=== PATIENT | female | born 1960 | race Caucasian/White ===

== ENCOUNTER 2019-04-17 10:43 | Emergency (ER) | payer MEDICARE, MEDICAID ==
--- NOTE | 2019-04-17 11:22 | UC ---
Ear Complaint HPI - HPI Summary HPI Summary: Per vp strategy: "LEFT EAR PAIN AND FEELS 'FILLED WITH FLUID' X1 WEEK. FELT FEVERISH. TAKING TYLENOL AND IBUPROFEN PRN. " -no fevers, no dc. + severe left ear pain last night -gets yeast infection from PCN based abx, but no allergy - History of Current Complaint Chief Complaint: UCEar Stated Complaint: LEFT EAR CONCERN Time Seen by Provider: 04/17/19 11:16 Pain Intensity: 0 - Allergies/Home Medications Allergies/Adverse Reactions: Allergies Allergy/AdvReac Type Severity Reaction Status Date / Time No Known Allergies Allergy Verified 04/17/19 11:05 Home Medications: Home Medications Albuterol HFA INHALER* [Ventolin HFA Inhaler*] 1 puff Q4HR PRN 04/17/19 [ History Confirmed 04/17/19] Esomeprazole Magnesium [Nexium 24Hr] 1 tab PO DAILY 04/17/19 [History Confirmed 04/17/19] Loratadine [Claritin 10 MG CAP] 10 mg PO DAILY 04/17/19 [History Confirmed 04/17] Nicotrol Inhaler 1 inh DAILY 04/17/19 [History Confirmed 04/17/19] PMH/Surg Hx/FS Hx/Imm Hx Previously Healthy: Yes - Surgical History Surgical History: None - Family History Known Family History: Positive: Hypertension, Diabetes - Social History Alcohol Use: Rare Substance Use Type: None Smoking Status (MU): Current Every Day Smoker Type: Cigarettes Amount Used/How Often: 1/4 PPD Length of Time of Smoking/Using Tobacco: SINCE 13 Y/O Review of Systems All Other Systems Reviewed And Are Negative: Yes Constitutional: Positive: Negative Skin: Positive: Negative. Negative: Rash Eyes: Positive: Negative ENT: Positive: Ear Ache. Negative: Sore Throat Respiratory: Positive: Negative. Negative: Shortness Of Breath, Cough Cardiovascular: Positive: Negative Gastrointestinal: Positive: Negative Genitourinary: Positive: Negative Motor: Positive: Negative Neurovascular: Positive: Negative Musculoskeletal: Positive: Negative Neurological: Positive: Negative Psychological: Positive: Negative Is Patient Immunocompromised?: No Physical Exam Triage Information Reviewed: Yes Appearance: Well-Appearing, No Pain Distress, Well-Nourished Vital Signs: Initial Vital Signs Temp 97.7 F 04/17/19 11:07 Pulse 84 06/01/19 11:07 Resp 18 04/17/19 11:07 BP 154/108 04/17/19 11:07 Pulse Ox 99 04/17/19 11:07 Eye Exam: Normal ENT: Positive: Pharynx normal, TM bulging, TM dull, TM red - left, right is nml , Uvula midline. Negative: Sinus tenderness Neck exam: Normal Neck: Positive: Supple, Nontender, No Lymphadenopathy Respiratory Exam: Normal Respiratory: Positive: Lungs clear, Normal breath sounds, No respiratory distress, No accessory muscle use. Negative: Crackles, Rhonchi, Stridor, Wheezing Cardiovascular Exam: Normal Cardiovascular: Positive: RRR Abdominal Exam: Normal Abdomen Description: Positive: Nontender, Soft Musculoskeletal Exam: Normal Neurological Exam: Normal Psychological Exam: Normal Skin Exam: Normal Ear Complaint Course/Dx - Course Course Of Treatment: Left OM - treat w/ amox -probuotic -dilfucan given to use if she gets sx, which she has w/ amox in past -BP elevated w/ pain, it has improved on recheck. avoid decongestants and nsaids and f/u with pcp - Differential Dx/Diagnosis Differential Diagnosis/HQI/PQRI: Cerumen Impaction, Otitis Media, Perforated TM Provider Diagnosis: Otitis media Discharge - Sign-Out/Discharge Documenting (check all that apply): Patient Departure All imaging exams completed and their final reports reviewed: No Studies - Discharge Plan Condition: Stable Disposition: HOME Prescriptions: Amoxicillin PO (*) [Amoxicillin 875 MG (*)] 875 mg PO BID #20 tab Fluconazole [Diflucan] 150 mg PO ONCE #1 tab Patient Education Materials: Ear Infection (ED) Referrals: Sally Dexter MD [Primary Care Provider] - Additional Instructions: -Make sure to take a probiotic daily while on antibiotics to help prevent a potential complication of antibiotic use called c diff. Some well known brands that can be found OTC are florastor, [employer] and [employer]. Make sure to complete the entire prescription unless advised otherwise by your health care provider. -Do not take decongestants/ibuprofen/advil/aleve as they can raise your blood pressure. Please follow up with your PCP regarding the high blood pressure today. - Billing Disposition and Condition Condition: STABLE Disposition: Home
[2019-04-17 11:30] VITALS: BP 164/96
== END 2019-04-17 11:37 | disposition home or self-care (01) ==
LOC: UCCORT 10:43
DX: H66.92 Otitis media, unspecified, left ear (principal); R03.0 Elevated blood-pressure reading, without diagnosis of hypertension; F17.210 Nicotine dependence, cigarettes, uncomplicated
CPT/HCPCS: 99202; G0463

== ENCOUNTER 2019-07-27 07:04 | Emergency (ER) | payer MEDICARE, OTHER ==
--- OUTSIDE RECORDS SUMMARY | 2019-07-27 07:17 | XMS REPORT | Continuity of Care Document ---
:1960 External Reference #:[id number] Author Name Sally Dexter M.D. (transmitted by agent of provider Shannon Vallejo) Address [address] [place] [address] Care Team Providers Name Role Phone Sally Dexter MD - Internal Medicine Care Team Information Stem Sizer Problems Active Problems Provider Date Gastroesophageal reflux disease Sally Dexter M.D. Onset: 03/08/2013 Contact dermatitis Sally Dexter M.D. Onset: 03/08/2013 Rheumatoid Arthritis Sally Dexter M.D. Onset: 06/01/2014 Social History Type Date Description Comments Sex Unknown Tobacco Use Start: Unknown Patient is a current smoker, smokes every day Smoking Status Reviewed: 09/29/17 Patient is a current smoker, smokes every day Allergies, Adverse Reactions, Alerts Active Allergies Reaction Severity Comments Date Omeprazole vomitting 10/13/2013 Nickel 05/10/2015 Medications Active Medications SIG Qnty Indications Ordering Date Provider Amoxicillin 1 by mouth three 30tabs J20.9 Sally Dexter, 07/13/2019 500mg times a day M.D. Tablets Fluconazole 1 by mouth every 3tabs J20.9 Sally Dexter, 07/13/2019 150mg day M.D. Tablets Nicotrol as directed 336units Slaly Dexter, 02/16/2019 10mg Inhaler M.D. José Natural Pain apply to 113.600gm M94.0 Sally Dexter, 12/07/2018 Relieving affected area M.D. 3-3% Gel twice a day Selsun Blue Deep apply to scalp 8floz L40.9 Sally Dexter, 04/14/2018 Cleansing daily M.D. 3% Shampoo Betamethasone apply to 30gm L40.9 Sally Dexter, 03/30/2018 Dipropionate affected areas M.D. 0.05% twice daily Cream Docusate Sodium 1 by mouth twice 120caps K59.00 Sally Dexter, 11/06/2016 100mg a day M.D. Capsules Meloxicam 1 by mouth twice 180tabs M05.60 aSlly Dexter, 11/06/2016 7.5mg Tablets a day with food M.D. Alendronate Sodium 1 PO Weekly 12tabs M81.0 Sally Dexter, 01/10/2014 70mg M.D. Tablets Fish Oil Concentrate 1 by mouth 3 240caps E78.5 Sally Dexter, 01/10/2014 times daily M.D. 1000mg Capsules Afrin Saline Nasal 1 spray each 30ml 381.19 Sally Dexter, 10/26/2013 Mist nostril bid use M.D. 0.65% Solution for 3 days Aerochamber Mini 2units Debi Alcantar MD 10/01/2013 Aerosol Chamber Device Ventolin HFA 2 puff four 1units J44.9 Sally Dexter, 09/29/2013 times a day as M.D. 108(90Base) mcg/Act needed Aerosol Loratadine 1 by mouth every 100tabs L50.1 Sally Dexter, 07/20/2013 10mg Tablets day M.D. Ra Lansoprazole Unknown 15mg Capsules [facility] Immune Unknown Plus/Vitamin D Chewtabs Alive Womens Gummy Unknown Chewtabs Sambucus Elderberry Unknown 50mg/5ML Syrup Immunizations CPT Code Status Date Vaccine Lot # [id number] Given 09/29/2017 Influenza Virus (Afluria) Split Virus 3 Years Of Age And Older [id number] Given 11/06/2016 Pneumococcal Conjugate Vaccine 13 Valent For [id number] Intramuscular Use Q2037 Given 10/22/2016 Influenza Vaccine (Fluvirin) 3 Years Of Age Or [id number] Older Vital Signs Date Vital Result Comment 07/13/2019 2:27pm BP Systolic 144 mmHg BP Diastolic 98 mmHg Heart Rate 88 /min Height 63 inches 5'3" Weight 144.00 lb BMI (Body Mass Index) 25.5 kg/m2 O2 % BldC Oximetry 97 % 12/21/2018 1:38pm BP Systolic 152 mmHg BP Diastolic 100 mmHg Heart Rate 92 /min Height 63 inches 5'3" Weight 144.00 lb BMI (Body Mass Index) 25.5 kg/m2 O2 % BldC Oximetry 96 % Results Description No Information Available Procedures Date Code Description Status 09/18/2017 646432259 Bone Mineral Density Test Completed 04/25/2016 231036739 Bone Mineral Density Test Completed 01/12/2014 35145307 Mammogram Completed Medical Devices Description No Information Available Encounters Description No Information Available Assessments Date Code Description Provider 07/13/2019 J20.9 Acute bronchitis, unspecified Sally Dexter M.D. 07/13/2019 F41.9 Anxiety disorder, unspecified Sally Dexter M.D. Plan of Treatment 07/13/2019 - Sally Dexter M.D.J20.9 Acute bronchitis, unspecifiedNew Medication: Amoxicillin 500 mg - 1 by mouth three times a dayFluconazole 150 mg - 1 by mouth every dayComments:Advise trest and fluids. To call office if wheezing worsens or sx mitihiiU15.9 Anxiety disorder, unspecifiedComments:advised to deal with this with legal advice Functional Status Description No Information Available Mental Status Description No Information Available Referrals Description No Information Available
--- OUTSIDE RECORDS SUMMARY | 2019-07-27 07:17 | XMS REPORT | Continuity of Care Document ---
:1960 External Reference #:[id number] Author Name Sally Dexter M.D. (transmitted by agent of provider Ayala Lindo) Address [address] [place] [address] Care Team Providers Name Role Phone Sally Dexter MD - Internal Medicine Care Team Information [employer] Problems Active Problems Provider Date Gastroesophageal reflux [...] Medications SIG Qnty Indications Ordering Date Provider Nicotrol as directed 336units Sally Dexter, 02/16/2019 10mg Inhaler M.D. José Natural [...] Meloxicam 1 by mouth twice 180tabs M05.60 Salyl Dexter, 11/06/2016 7.5mg Tablets a day with food M.D. Fish Oil Concentrate 1 by mouth 3 240caps E78.5 Sally Dexter, 01/10/2014 times daily M.D. 1000mg Capsules Alendronate Sodium 1 PO Weekly 12tabs M81.0 Sally Dexter, 01/10/2014 70mg M.D. Tablets Afrin Saline Nasal 1 spray each 30ml [...] Virus 3 Years Of Age And Older [address] Given 11/06/2016 Pneumococcal Conjugate Vaccine 13 Valent For [id number] Intramuscular Use Q2037 Given 10/22/2016 Influenza Vaccine (Fluvirin) 3 Years Of Age Or [id number] Older Vital Signs Date Vital Result Comment [...] Available Procedures Date Code Description Status 09/18/2017 [id number] Bone Mineral Density Test Completed 04/25/2016 552258013 Bone Mineral Density Test Completed 01/12/2014 37615685 Mammogram Completed Medical Devices Description No Information Available Encounters Description No Information Available Assessments Description No Information Available Plan of Treatment No Information Available Functional Status Description No Information Available Mental Status Description No Information Available Referrals Description No Information Available
[2019-07-27 07:29] VITALS: BP 168/91
--- NOTE | 2019-07-27 08:15 | UC ---
Lower Extremity/Ankle HPI - HPI Summary HPI Summary: left ankle pain x 1 day pain is 10 out of 10 , worse with movement , better with rest and ice + injury , stepped on a hole and twisted her left ankle + pain and swelling lateral ankle, cannot bear weight - History of Current Complaint Chief Complaint: UCLowerExtremity Stated Complaint: LEFT ANKLE INJURY Time Seen by Provider: 07/27/19 07:26 Hx Obtained From: Patient ?: No Onset/Duration: Sudden Onset, Lasting Days - 1, Still Present Severity Initially: Severe Severity Currently: Severe Pain Intensity: 10 Aggravating Factor(s): Standing, Ambulation Alleviating Factor(s): Rest, Elevation, Ice Able to Bear Weight: No - Allergies/Home Medications Allergies/Adverse Reactions: Allergies Allergy/AdvReac Type Severity Reaction Status Date / Time No Known Allergies Allergy Verified 07/27/19 07:23 Home Medications: Home Medications Acetaminophen [Acetaminophen Extra Strength] 1,000 mg PO Q6H PRN 07/27/19 [ History Confirmed 07/27/19] Amoxicillin PO (*) [Amoxicillin 500 MG CAP*] 500 mg PO TID 07/27/19 [History Confirmed 07/27/19] Nicotine Inhaler* (NF) [Nicotine Inhaler*] 10 mg INH Q2H PRN 07/27/19 [History Confirmed 07/27/19] PMH/Surg Hx/FS Hx/Imm Hx - Additional Past Medical History Additional PMH: Allergies, Dyslipidemia, GERD, RA Cardiovascular History: Hypertension Respiratory History: COPD - Surgical History Surgical History: None - Family History Known Family History: Positive: Hypertension, Diabetes - Social History Alcohol Use: None Substance Use Type: None Smoking Status (MU): Heavy Every Day Tobacco Smoker Type: Cigarettes Amount Used/How Often: <1 PPD Length of Time of Smoking/Using Tobacco: Since Age 13 Review of Systems All Other Systems Reviewed And Are Negative: Yes Constitutional: Positive: Negative Skin: Positive: Negative Eyes: Positive: Negative ENT: Positive: Negative Respiratory: Positive: Negative Is Patient Immunocompromised?: No Physical Exam Triage Information Reviewed: Yes Appearance: Well-Appearing, No Pain Distress, Well-Nourished Vital Signs: Initial Vital Signs Temp 98.6 F 07/27/19 07:22 Pulse 84 07/27/19 07:22 Resp 18 07/27/19 07:22 BP 168/91 07/27/19 07:22 Pulse Ox 99 07/27/19 07:22 Vital Signs Reviewed: Yes Eye Exam: Normal Eyes: Positive: Conjunctiva Clear ENT: Positive: Normal ENT inspection, Hearing grossly normal, Pharynx normal Neck exam: Normal Respiratory: Positive: Chest non-tender, Lungs clear, Normal breath sounds Cardiovascular: Positive: RRR, No Murmur, Pulses Normal Musculoskeletal: Positive: Other: - left ankle : + swelling and tenderness lateral ankle , limited ROM , limited strength Diagnostics - Radiology No standard instances Radiology Interpretation Completed By: Radiologist Summary of Radiographic Findings: xray left ankle: REPORT AND IMPRESSION: #. Mild soft tissue swelling over the lateral malleolus without evidence for fracture, osteochondral lesion, or malalignment. Lower Extremity Course/Dx - Course Course Of Treatment: HTN: cont. with current meds follow up with your pcp - Differential Dx/Diagnosis Provider Diagnosis: Left ankle sprain, Hypertension Discharge ED - Sign-Out/Discharge Documenting (check all that apply): Patient Departure All imaging exams completed and their final reports reviewed: Yes - Discharge Plan Condition: Stable Disposition: HOME Prescriptions: Naproxen [Naproxen 500 mg tab] 500 mg PO BID #20 tablet Patient Education Materials: Ankle Sprain (ED) Referrals: Sally Dexter MD [Primary Care Provider] - 7 Days - Billing Disposition and Condition Condition: STABLE Disposition: Home
== END 2019-07-27 08:26 | disposition home or self-care (01) ==
LOC: UCCORT 07:04
DX: S93.402A Sprain of unspecified ligament of left ankle, initial encounter (principal); X50.1XXA Overexertion from prolonged static or awkward postures, initial encounter; Y92.89 Other specified places as the place of occurrence of the external cause; I10 Essential (primary) hypertension; J44.9 Chronic obstructive pulmonary disease, unspecified; M06.9 Rheumatoid arthritis, unspecified; F17.210 Nicotine dependence, cigarettes, uncomplicated
CPT/HCPCS: 99213; G0463